=== PATIENT | female | born 1975 | race Caucasian/White ===

== ENCOUNTER 2017-07-03 06:48 | Day surgery (SDC) | payer MEDICAID ==
[2017-06-28 09:57] VITALS: BMI 31.1
[2017-07-03] MEDS ORDERED: ceFAZolin IV 1 gm in Dextrose 0 GM/0 ML BAG IVPB ONE (07:18)
[2017-07-03] MEDS ORDERED: Lidocaine 2% w Epi 1:100,000 Inj IJ ONE (07:19)
[2017-07-03] MEDS ORDERED: Acetaminophen-Codeine 300/30 mg Tab PO PRN (08:22)
[2017-07-03] MEDS ORDERED: Dextrose 5%/0.45% NS 1,000 ML IV SCH (08:30)
[2017-07-03] MEDS ORDERED: Midazolam 2 MG/2 ML VIAL ONE (09:32)
[2017-07-03] MEDS ORDERED: Propofol 10 mg/ml Inj (20 ML) ONE (09:32)
[2017-07-03] MEDS ORDERED: Lactated Ringer's 1,000 ML IV ONE ×2 (09:35→14:30)
[2017-07-03] MEDS ORDERED: ceFAZolin IV 2 gm in Dextrose 1 GM/50 ML BAG IVPB ONE (09:47)
[2017-07-03] MEDS: EPINEPHrine 1:1000 Nasal Sol(30mL) ONE ×2 (09:55→10:00)
[2017-07-03] MEDS ORDERED: Rocuronium 10 mg/ml (5 ml) ONE (10:14)
[2017-07-03] MEDS ORDERED: Neostigmine Methylsulfate 3mg/3ml Syringe IV ONE (10:15)
[2017-07-03] MEDS: HYDROmorphone 0.5 mg/0.5 ml ISec IVP PRN ×3 (11:26→12:00)
--- NOTE | 2017-07-03 11:59 | OP ---
PROCEDURE DATE: 07/03/2017 PREOPERATIVE DIAGNOSES: Deviated septum, enlarged turbinates, and sinusitis. POSTOPERATIVE DIAGNOSES: Deviated septum, enlarged turbinates, and sinusitis. PROCEDURES: Endoscopic bilateral maxillary antrostomy, endoscopic bilateral ethmoidectomy, endoscopic bilateral inferior turbinate reduction, and septoplasty. SURGEON: Lalo Cedeño MD SIGNIFICANT FINDINGS: Deviated septum, enlarged turbinates, and sinusitis. DESCRIPTION OF PROCEDURE: The patient was brought into the room, placed in supine position, anesthesia was initiated through an ET tube. Navigation was set up and used throughout the case in order to make sure that the skull base and orbit were not entered. Adrenaline-soaked pledgets were inserted into the nasal cavity, remained there for at least 5 minutes and removed. The patient was draped in the usual manner. The septum was injected with lidocaine with epinephrine on both sides. A Gold[place]ale's incision was made on the left side of the septum and a mucoperichondrial flap was raised. A vertical incision was made in the cartilage leaving a 1.5 cm anterior and superior strut and a mucoperichondrial flap was raised on the other side. Deviated portion of the cartilage and bones were removed using forceps and chisel. A quilting suture was used to suture the 2 flaps together and close the [place]'s incision. A 0-degree scope was inserted into the nasal cavity. The inferior turbinates were noted to be enlarged and reduced in size using scissors, first on the right down the left, going from the inferior to superior and anterior to posterior direction. Bleeding was controlled using suction cautery. Attention was turned to the left, the middle turbinate was injected with lidocaine with epinephrine and medialized. The uncinate process was medialized using freer elevator and removed using forceps. The ethmoid bulla was entered using a debrider inferomedially going posteriorly to the basal lamella and then anteriorly and superiorly until the ethmoid bulla was removed. The basal lamella was entered. The posterior ethmoid cells were entered and opened. The skull base was identified and followed anteriorly all the way to the area of the anterior ethmoid air cells. A curved suction hooked up to navigation was used to locate the maxillary antrum, which was noted to be stenosed and opened using forceps. Attention was turned to the other side and middle turbinate was injected with lidocaine with epinephrine and medialized. The uncinate process was medialized using freer elevator and removed using forceps. A debrider was use to enter the ethmoid bulla inferomedially going posteriorly to the basal lamella and then anteriorly and superiorly until the ethmoid bulla was removed. The basal lamella was entered. The posterior ethmoid cells were entered and opened and skull base was identified and followed anteriorly all the way to the area of the anterior ethmoid air cells. The curved suction hooked up to navigation was used to locate the maxillary antrum, which was noted to be stenosed and opened using forceps. Bleeding on both sides were controlled using adrenaline-soaked pledgets and suction cautery. Splints were placed. Stents were placed. The patient was taken off anesthesia and taken to recovery room in a stable manner. Lalo Cedeño MD [facility]
[2017-07-03] MEDS ORDERED: Lactated Ringer's 500 ML IV ONE (12:00)
[2017-07-03 12:45] VITALS: RESP 18
[2017-07-03 16:01] VITALS: BP 147/62; PULSE 84; TEMP 98; O2SAT 100
== END 2017-07-03 15:30 | disposition home or self-care (01) ==
LOC: C.SDS 06:48
PROVIDERS: ATTEND Otolaryngology
DX: J34.2 Deviated nasal septum (principal); J34.3 Hypertrophy of nasal turbinates; J32.0 Chronic maxillary sinusitis
CPT/HCPCS: 30140; 30520; 31254; 31256; 88304; J0690; J1100; J1170; J2001; J2250; J2405; J2704; J2710; J3010; J7120